=== PATIENT | male | born 1990 | race American Indian/Alaskan Native ===

== ENCOUNTER 2018-10-06 12:28 | Emergency (ER) | payer MEDICAID, OTHER ==
[2018-10-06 13:04] VITALS: BMI 38.4
[2018-10-06 13:06] VITALS: BP 159/91; PULSE 91; RESP 16; TEMP 99.3; O2SAT 95
[2018-10-06] MEDS ORDERED: DiphenhydrAMINE 12.5 mg/5 ml LIQ UD (5 ml) PO STA (13:36)
--- NOTE | 2018-10-06 13:36 | ED PDOC ---
Arrival/HPI - General Chief Complaint: ENT Problem Historian: Patient - History of Present Illness Narrative History of Present Illness (Text): 10/06/18 13:23 28 y/o male, no significant pmh, nkda, c/o nasal/sinus congestion with bilateral ear pain x 3 days. Pt. stated that he has runny nose with nasal/sinus congestion, associated with frontal headache, no fall or trauma, no night sweat, no rash, no numbness or tingling, no night sweat, no change in vision, no neck stiffness, no other medical or psychological complaints. Past Medical History - Provider Review Nursing Documentation Reviewed: Yes - Past History Past History: No Previous - Infectious Disease Hx of Infectious Diseases: None - Tetanus Immunization Tetanus Immunization: Up to Date - Past Medical History Past Medical History: No Previous - Cardiac Hx Coronary Artery Disease: No Hx Cardiac Arrhythmia: No Hx Congestive Heart Failure: No Hx Hypertension: No Hx Internal Defibrillator: No Hx Mitral Valve Prolapse: No Hx Pacemaker: No Hx Peripheral Edema: No - Pulmonary Hx Asthma: No Hx Bronchitis: No Hx Chronic Obstructive Pulmonary Disease (COPD): No Hx Emphysema: No - Neurological Hx Transient Ischemic Attacks (TIA): No - Renal Hx Renal Failure: No - Endocrine/Metabolic Hx Hyperthyroidism: No Hx Hypothyroidism: No - Hematological/Oncological Hx Anemia: No Hx Cancer: No Hx Hepatitis A: No Hx Hepatitis B: No Hx Hepatitis C: No Hx HIV: No - Musculoskeletal/Rheumatological Hx Arthritis: No - Gastrointestinal Hx Crohn's Disease: No Hx Diverticulitis: No Hx Gastrointestinal Ulcer: No Hx Liver Failure: No - Psychiatric Hx Substance Use: No - Past Surgical History Past Surgical History: No Previous - Surgical History Hx Valve Replacement: No Other/Comment: Nose-Deviated Septum - Suicidal Assessment Feels Threatened In Home Enviroment: No Family/Social History - Physician Review Nursing Documentation Reviewed: Yes Family/Social History: Unknown Family HX Smoking Status: Never Smoked Hx Alcohol Use: Yes Frequency of alcohol use: Socially Hx Substance Use: No Hx Substance Use Treatment: No Allergies/Home Meds Allergies/Adverse Reactions: Allergies shellfish derived Allergy (Verified 10/06/18 13:06) SWELLING Review of Systems - Review of Systems Constitutional: absent: Fatigue, Fevers Eyes: absent: Vision Changes ENT: Rhinorrhea, Sinus Congestion, Other (+ear pain). absent: Hearing Changes Respiratory: absent: SOB, Cough Cardiovascular: absent: Chest Pain Gastrointestinal: absent: Abdominal Pain, Diarrhea, Nausea, Vomiting Musculoskeletal: absent: Arthralgias, Back Pain Skin: absent: Rash, Pruritis Neurological: Headache. absent: Dizziness Psychiatric: absent: Anxiety, Depression, Suicidal Ideation Physical Exam Vital Signs Reviewed: Yes Vital Signs Temp Pulse Resp BP Pulse Ox 10/06/18 13:04 99.3 F 91 H 16 159/91 H 95 Temperature: Afebrile Blood Pressure: Hypertensive Pulse: Regular Respiratory Rate: Normal Appearance: Positive for: Well-Appearing, Non-Toxic, Comfortable Pain Distress: Mild Mental Status: Positive for: Alert and Oriented X 3 - Systems Exam Head: Present: Atraumatic, Normocephalic, Other (+ttp on the rt. maxillary region with +bending forward test, no swelling. ). No: Tenderness, Contusion, Swelling, Ecchymosis, Abrasion, Laceration Pupils: Present: PERRL Extroacular Muscles: Present: EOMI Conjunctiva: Present: Normal, Other (no periorbital swelling) Ears: Present: NORMAL TM, Normal Canal. No: Erythema Mouth: Present: Moist Mucous Membranes Pharnyx: Present: Normal. No: ERYTHEMA, EXUDATE, TONSILS ENLARGED Nose (External): Present: Atraumatic. No: Abrasion, Contusion, Laceration Nose (Internal): Present: Normal Inspection, No Active Bleeding, Rhinorrhea. No: Septal Deviation, Septal Hematoma, Epistaxis Neck: Present: Normal Range of Motion, Trachea Midline. No: Meningeal Signs, MIDLINE TENDERNESS, Paraspinal Tenderness, Lymphadenopathy Respiratory/Chest: Present: Clear to Auscultation, Good Air Exchange. No: Respiratory Distress, Accessory Muscle Use, Wheezes, Decreased Breath Sounds, Retracting, Rhonchi Cardiovascular: Present: Regular Rate and Rhythm, Normal S1, S2. No: Murmurs Abdomen: No: Tenderness, Distention, Peritoneal Signs Back: Present: Normal Inspection Upper Extremity: Present: Normal Inspection. No: Cyanosis, Edema Lower Extremity: Present: Normal Inspection. No: Edema Neurological: Present: GCS=15, CN II-XII Intact, Speech Normal, Motor Func Gross ly Intact, Gait Normal, Memory Normal, Other (no drift, no focal neurological deficits. ) Skin: Present: Warm, Dry, Normal Color. No: Rashes Psychiatric: Present: Alert, Oriented x 3, Normal Insight, Normal Concentration Medical Decision Making ED Course and Treatment: 10/06/18 13:39 -Toradol IM and benadryl 10/06/18 14:14 -Pt. request to be discharged home. No more headache now. -Discharge home with augmentin, claritin d24, flonase, motrin, stay hydrated, follow up with your own and ENT within 2 days, return to the ER for any new or worsening signs or symptoms. - PA / [employer] / Resident Statement / has reviewed & agrees with the documentation as recorded. Disposition/Present on Arrival - Present on Arrival Any Indicators Present on Arrival: No History of DVT/PE: No History of Uncontrolled Diabetes: No Urinary Catheter: No History of Decub. Ulcer: No History Surgical Site Infection Following: None - Disposition Have Diagnosis and Disposition been Completed?: Yes Diagnosis: Sinusitis Disposition: HOME/ ROUTINE Disposition Time: 14:05 Patient Plan: Discharge Patient Problems: Current Active Problems Problem Status Onset Sinusitis Acute Condition: GOOD Additional Instructions: -Discharge home with augmentin, claritin d24, flonase, motrin, stay hydrated, follow up with your own and ENT within 2 days, return to the ER for any new or worsening signs or symptoms. Prescriptions: Amoxicillin/Clavulanate [Augmentin 875 MG-125 MG] 1 tab PO BID #14 tab Fluticasone Nasal [Flonase] 1 spr NS DAILY PRN #1 spr PRN Reason: Other Ibuprofen [Motrin Tab] 600 mg PO QID PRN #30 tab PRN Reason: Other Loratadine/Pseudoephedrine [Claritin-D 24 Hour Tablet] 1 each PO DAILY #7 tab.er.24h Referrals: Franky Walker DO [Staff Provider] - Follow up with primary [facility] at [facility] [place] [Outside] - Follow up with primary Forms: [employer] Connect (Slovak), WORK NOTE
== END 2018-10-06 14:29 | disposition home or self-care (01) ==
LOC: ED 12:28
DX: J32.9 Chronic sinusitis, unspecified (principal)
CPT/HCPCS: 96372; 99283; J1885

== ENCOUNTER 2018-10-06 21:01 | Emergency (ER) | payer SELFPAY ==
[2018-10-06 22:20] VITALS: BP 129/80; PULSE 101; RESP 19; TEMP 98.7; O2SAT 97; BMI 38.7
--- NOTE | 2018-10-06 22:47 | ED PDOC ---
Arrival/HPI - General Historian: Patient - History of Present Illness Narrative History of Present Illness (Text): 10/06/18 22:40 28 y o male no remarkable past medical history, presents to the Emergency department complaining of R ear pain that started this am. Pt was recently seen in [facility] Emergency department earlier today, diagnosed with sinusitis, and prescribed antibiotics, Claritin, and ibuprofen for pain. Pt states he picked up his meds at the pharmacy today, took 1 dose of each medication, felt like his symptoms were not improving, and thus came to the Emergency department again. Reports ear pain, associated jaw pain, and sore throat. States his tongue is s wollen but denies feeling like his throat is closing up. States he has pain with swallowing foods and liquids. Admits to productive yellowish sputum. Admits to subjective fevers and chills. Denies headache, chest pain, sob, nausea, vomiting, d/c, abd pain, urinary complaints, or other symptoms. 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 Past medical history: states he has had recurrent ear infections in childhood, but no recent hx PSurgHx: denies Allergies: NKDA Meds: Augmentin, Claritin, ibuprofen Fam hx: denies, noncontributory Soc hx: denies smoking, EtOH, or illicit drug use <Randall Soto - Last Filed: 10/06/18 23:11> - History of Present Illness Symptom Onset: Gradual Symptom Course: Unchanged Activities at Onset: Light <Jeffrey Vanessa - Last Filed: 10/06/18 23:14> - General Chief Complaint: ENT Problem Past Medical History - Past History Past History: No Previous - Infectious Disease Hx of Infectious Diseases: None - Tetanus Immunization Tetanus Immunization: Up to Date - Past Medical History Past Medical History: No Previous - Cardiac Hx Cardiac Arrhythmia: No Hx Congestive Heart Failure: No Hx Hypertension: No Hx Internal Defibrillator: No Hx Mitral Valve Prolapse: No Hx Pacemaker: No Hx Peripheral Edema: No - Pulmonary Hx Asthma: No Hx Bronchitis: No Hx Chronic Obstructive Pulmonary Disease (COPD): No Hx Emphysema: No - Neurological Hx Transient Ischemic Attacks (TIA): No - Renal Hx Renal Failure: No - Endocrine/Metabolic Hx Hyperthyroidism: No Hx Hypothyroidism: No - Hematological/Oncological Hx Anemia: No Hx Cancer: No Hx Hepatitis A: No Hx Hepatitis B: No Hx Hepatitis C: No - Musculoskeletal/Rheumatological Hx Arthritis: No - Gastrointestinal Hx Crohn's Disease: No Hx Diverticulitis: No Hx Gastrointestinal Ulcer: No Hx Liver Failure: No - Psychiatric Hx Depression: No Hx Emotional Abuse: No Hx Physical Abuse: No Hx Substance Use: No - Past Surgical History Past Surgical History: No Previous - Surgical History Hx Valve Replacement: No Other/Comment: Nose-Deviated Septum - Anesthesia Hx Anesthesia: Yes Hx Anesthesia Reactions: No Hx Malignant Hyperthermia: No - Suicidal Assessment Feels Threatened In Home Enviroment: No <Randall Soto - Last Filed: 10/06/18 23:11> - Provider Review Nursing Documentation Reviewed: Yes <Jeffrey Vanessa - Last Filed: 10/06/18 23:14> Family/Social History Family/Social History: No Known Family HX Smoking Status: Never Smoked Hx Alcohol Use: Yes Frequency of alcohol use: Socially Hx Substance Use: No Hx Substance Use Treatment: No <Randall Soto - Last Filed: 10/06/18 23:11> - Physician Review Nursing Documentation Reviewed: Yes <Jeffrey Vanessa - Last Filed: 10/06/18 23:14> Allergies/Home Meds <Randall Soto - Last Filed: 10/06/18 23:11> <Jeffrey Vanessa - Last Filed: 10/06/18 23:14> Allergies/Adverse Reactions: Allergies shellfish derived Allergy (Verified 10/06/18 13:06) SWELLING Review of Systems - Review of Systems Constitutional: Fevers. absent: Fatigue, Night Sweats Eyes: absent: Vision Changes ENT: Hearing Changes, Sore Throat, Sinus Congestion Respiratory: Sputum. absent: SOB, Cough Cardiovascular: absent: Chest Pain, MALLORY, Orthopnea Gastrointestinal: absent: Abdominal Pain, Stool Changes, Constipation, Diarrhea, Nausea, Vomiting Skin: absent: Rash Neurological: absent: Headache, Dizziness <Randall Soto - Last Filed: 10/06/18 23:11> - Physician Review All systems were reviewed & negative as marked: Yes <Jeffrey Vanessa - Last Filed: 10/06/18 23:14> Physical Exam Vital Signs Temp Pulse Resp BP Pulse Ox 10/06/18 22:12 98.7 F 101 H 19 129/80 97 Temperature: Afebrile Blood Pressure: Normal Pulse: Tachycardic Respiratory Rate: Normal Appearance: Positive for: Non-Toxic, Uncomfortable Pain Distress: Moderate Mental Status: Positive for: Alert and Oriented X 3 - Systems Exam Head: Present: Atraumatic, Normocephalic Pupils: Present: PERRL Extroacular Muscles: Present: EOMI Conjunctiva: Present: Normal Ears: Present: Erythema, Fluid Mouth: Present: Moist Mucous Membranes, Normal Tounge Pharnyx: No: ERYTHEMA, EXUDATE, TONSILS ENLARGED, Peritonsilar Swelling, Strider Nose (Internal): Present: Rhinorrhea Neck: Present: Normal Range of Motion, Lymphadenopathy. No: JVD Respiratory/Chest: Present: Clear to Auscultation, Good Air Exchange. No: Respiratory Distress, Wheezes, Rales, Rhonchi Cardiovascular: Present: Regular Rate and Rhythm, Normal S1, S2. No: Murmurs, Rub, Gallop Abdomen: Present: Normal Bowel Sounds. No: Tenderness, Distention, Rebound, Mass/Organomegaly Upper Extremity: Present: Normal Inspection, Normal ROM, NORMAL PULSES, Neurovascularly Intact, Capillary Refill < 2s. No: Cyanosis, Edema Lower Extremity: Present: Normal Inspection, NORMAL PULSES, Normal ROM. No: Edema, Cyanosis Neurological: Present: GCS=15, CN II-XII Intact, Speech Normal Skin: Present: Warm, Dry, Normal Color. No: Rashes Psychiatric: Present: Alert, Oriented x 3, Normal Insight, Normal Concentration <Randall Soto - Last Filed: 10/06/18 23:11> Vital Signs Reviewed: Yes Vital Signs Temp Pulse Resp BP Pulse Ox 10/06/18 22:12 98.7 F 101 H 19 129/80 97 <Jeffrey Vanessa - Last Filed: 10/06/18 23:14> Medical Decision Making ED Course and Treatment: 10/06/18 22:52 A: Pt presents with pharyngitis and R ear infection. P: Decadron 10 mg IM x1. Instructed pt to continue with antibiotics, Claritin, and ibuprofen prescribed earlier today. Educated pt that symptoms will take up to 48-72 hrs to improve. Pt can use OTC Chloraseptic spray prior to drinking and eating to help with throat pain. Instructed to drink plenty of fluids and drink broths/soups, can advance diet as tolerated. Instructed to follow with PCP in next 2-3 days after Emergency department discharge. Pt to be discharged to home. <Randall Soto - Last Filed: 10/06/18 23:11> ED Course and Treatment: Patient Seen with Provider In agreement with resident note which contains more details about the patient. Patient seen and evaluated with resident. Came up with plan and treatment together. 28 year old male presents complaining of right ear pain that started this morning. Patient was seen earlier today and diagnosed with diagnosed with sinusitis, and prescribed antibiotics, Claritin, and ibuprofen for pain. Plan: -- Decadron Inj -- Reassess and disposition - Medication Orders Current Medication Orders: Discontinued Medications Dexamethasone (Decadron Inj) 10 mg IM STAT STA Stop: 10/06/18 22:41 Last Admin: 10/06/18 22:58 Dose: 10 mg IM Administration Charges Document 10/06/18 22:58 JMR (Rec: 10/06/18 22:58 JMR [id number]) Injection Site MAR Injection Site Left Deltoid Charges for Administration # of IM Administrations 1 <Jeffrey Vanessa - Last Filed: 10/06/18 23:14> - PA / HOME HEALTH ATTENDANT / Resident Statement / has reviewed & agrees with the documentation as recorded. MD/ has examined the patient and agrees with the treatment plan. - Scribe Statement The provider has reviewed the documentation as recorded by the Scribe Jesusita Mercado Provider Scribe Attestation: All medical record entries made by the Scribe were at my direction and personally dictated by me. I have reviewed the chart and agree that the record accurately reflects my personal performance of the history, physical exam, me dical decision making, and the department course for this patient. I have also personally directed, reviewed, and agree with the discharge instructions and disposition. <Jeffrey Vanessa - Last Filed: 10/06/18 23:14> Disposition/Present on Arrival - Present on Arrival Any Indicators Present on Arrival: No History of DVT/PE: No History of Uncontrolled Diabetes: No Urinary Catheter: No History of Decub. Ulcer: No History Surgical Site Infection Following: None - Disposition Have Diagnosis and Disposition been Completed?: Yes Disposition Time: 23:12 <Randall Soto - Last Filed: 10/06/18 23:11> <Jeffrey Vanessa - Last Filed: 10/06/18 23:14> - Disposition Diagnosis: Pharyngitis, Ear infection Disposition: HOME/ ROUTINE Patient Problems: Current Active Problems Problem Status Onset Ear infection Acute Pharyngitis Acute Condition: STABLE Discharge Instructions (ExitCare): Ear Infections (Otitis Media), Sore Throat, Adult (DC) Print Language: ICELANDIC Additional Instructions: Please follow up with your primary care physician within 2-3 days of hospital discharge. Please take medications as prescribed. Should symptoms recur or worsen, please call your primary care physician or report to your nearest emergency department. Forms: [employer] (Maltese)
== END 2018-10-07 00:46 | disposition home or self-care (01) ==
LOC: ED 21:01
DX: J02.9 Acute pharyngitis, unspecified (principal); H66.91 Otitis media, unspecified, right ear
CPT/HCPCS: 96372; 99282; J1100

== ENCOUNTER 2019-01-02 09:02 | Emergency (ER) | payer BC ==
[2019-01-02 09:02] VITALS: BMI 38.4
--- NOTE | 2019-01-02 09:11 | ED PDOC ---
Arrival/HPI - General Chief Complaint: Chest Pain Time Seen by Provider: 01/02/19 09:03 Historian: Patient - History of Present Illness Narrative History of Present Illness (Text): 01/02/19 09:37 28 y/o male with no significant PMH presents to the ED c/o epigastric pain x 2 weeks. Pain is described as a pressure, sometimes burning, that occasionally radiates up into the chest. Made worse after eating, lying flat, and working out but occasionally occurs unprovoked. Pain is constant but waxes and wanes. Has taken peptobismol once for the pain without relief. Had one episode of cough today with rao hemoptysis, states the bottom of the sink had blood; and one episode of post-tussive vomiting. Does not have a PMD or project [employer] and has never had pain like this prior. Denies fevers, chills, SOB, congestion, back pain, headache, dizziness, nausea, diarrhea, constipation, melena, rectal bleeding, urinary symptoms, drug use, or any other associated symptoms. Past Medical History - Provider Review Nursing Documentation Reviewed: Yes - Past History Past History: No Previous - Infectious Disease Hx of Infectious Diseases: None - Tetanus Immunization Tetanus Immunization: Up to Date - Past Medical History Past Medical History: No Previous - Cardiac Hx Cardiac Arrhythmia: No Hx Congestive Heart Failure: No Hx Hypertension: No Hx Internal Defibrillator: No Hx Mitral Valve Prolapse: No Hx Pacemaker: No Hx Peripheral Edema: No - Pulmonary Hx Asthma: No Hx Bronchitis: No Hx Chronic Obstructive Pulmonary Disease (COPD): No Hx Emphysema: No - Neurological Hx Transient Ischemic Attacks (TIA): No - Renal Hx Renal Failure: No - Endocrine/Metabolic Hx Hyperthyroidism: No Hx Hypothyroidism: No - Hematological/Oncological Hx Anemia: No Hx Cancer: No Hx Hepatitis A: No Hx Hepatitis B: No Hx Hepatitis C: No - Musculoskeletal/Rheumatological Hx Arthritis: No - Gastrointestinal Hx Crohn's Disease: No Hx Diverticulitis: No Hx Gastrointestinal Ulcer: No Hx Liver Failure: No - Psychiatric Hx Depression: No Hx Emotional Abuse: No Hx Physical Abuse: No Hx Substance Use: No - Past Surgical History Past Surgical History: No Previous - Surgical History Hx Valve Replacement: No Other/Comment: Nose-Deviated Septum - Anesthesia Hx Anesthesia: Yes Hx Anesthesia Reactions: No Hx Malignant Hyperthermia: No - Suicidal Assessment Feels Threatened In Home Enviroment: No Family/Social History - Physician Review Nursing Documentation Reviewed: Yes Family/Social History: No Known Family HX Smoking Status: Never Smoked Hx Alcohol Use: Yes Hx Substance Use: No Hx Substance Use Treatment: No Allergies/Home Meds Allergies/Adverse Reactions: Allergies shellfish derived Allergy (Verified 01/02/19 09:07) SWELLING Review of Systems - Physician Review All systems were reviewed & negative as marked: Yes - Review of Systems Constitutional: Normal. absent: Fevers Eyes: Normal. absent: Vision Changes ENT: Normal. absent: Sore Throat, Sinus Congestion Respiratory: Cough. absent: SOB, Sputum Cardiovascular: Chest Pain. absent: Palpitations, Syncope Gastrointestinal: Abdominal Pain. absent: Stool Changes, Nausea, Vomiting, Appetite Changes Genitourinary Male: Normal. absent: Dysuria, Frequency Musculoskeletal: Normal. absent: Arthralgias, Back Pain, Neck Pain Skin: Normal. absent: Rash Neurological: Normal. absent: Headache, Dizziness, Focal Weakness, Disequilibrium Endocrine: Normal Hemo/Lymphatic: Normal Psychiatric: Normal Physical Exam Vital Signs Reviewed: Yes Temperature: Afebrile Blood Pressure: Hypertensive Pulse: Regular Respiratory Rate: Normal Appearance: Positive for: Well-Appearing, Non-Toxic, Comfortable Pain Distress: None Mental Status: Positive for: Alert and Oriented X 3 - Systems Exam Head: Present: Atraumatic, Normocephalic Pupils: Present: PERRL Extroacular Muscles: Present: EOMI Conjunctiva: Present: Normal Mouth: Present: Moist Mucous Membranes Neck: Present: Normal Range of Motion. No: Paraspinal Tenderness Respiratory/Chest: Present: Clear to Auscultation, Good Air Exchange. No: Respiratory Distress, Accessory Muscle Use Cardiovascular: Present: Regular Rate and Rhythm, Normal S1, S2, Peripheal Pulses Present. No: Murmurs Abdomen: Present: Tenderness (epigastric, mild), Normal Bowel Sounds. No: Distention, Peritoneal Signs Rectal: Present: Normal Rectal Tone. No: Occult Blood, Rectal Tenderness, Gross Blood, Melena, Hemorrhoids, Fissures, Nodule/Mass/Lesions Back: Present: Normal Inspection. No: CVA Tenderness Upper Extremity: Present: Normal Inspection, Normal ROM, NORMAL PULSES, Neurovascularly Intact, Capillary Refill < 2s. No: Cyanosis, Edema, Temperature Abnormalties Lower Extremity: Present: Normal Inspection, NORMAL PULSES, Normal ROM, Neurovascularly Intact, Capillary Refill < 2 s. No: Edema, Temperature Abnormalties Neurological: Present: GCS=15, CN II-XII Intact, Speech Normal, Motor Func Grossly Intact, Normal Sensory Function, Gait Normal Skin: Present: Warm, Dry, Normal Color. No: Rashes Psychiatric: Present: Alert, Oriented x 3, Normal Insight, Normal Concentration, Normal Affect, Normal Mood Medical Decision Making ED Course and Treatment: 01/02/19 09:09 Initial Plan: * Bloodwork * Cardiac Iso * Coags * CXR * EKG * IVF * GI cocktail Pain appears MSK or GI related, low suspicion for cardiac chest pain secondary to low heart score, exacerbating factors, long duration, and epigastric tenderness. However, secondary to hemoptysis, ED attending Dr. Wells recommends CTA to r/o PE without D-dimer. Pt reports mild improvement in pain with medications Labwork reviewed, CPK elevated. Pt has history of elevated CPK with similar pain, hydrated with IVF. Pt has no evidence of rhabdomyolysis, no blood in urine. 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 Diagnostic testing results and plan of care discussed with patient. Strict instructions given regarding prescription use, importance of followup, and signs/symptoms to return to ER including worsening chest pain, difficulty breathing, syncope, or any other new/worsening symptoms. Pt verbalized understanding of discussion. Patient is A&Ox3, ambulating with steady gait, with vital signs stable for discharge. - Lab Interpretations Lab Results: 01/02/19 09:50 01/02/19 09:50 Lab Results 01/02/19 09:50: Urine Opiates Screen Negative, Urine Methadone Screen Negative, Ur Barbiturates Screen Negative, Ur Phencyclidine Scrn Negative, Ur Amphetamines Screen Negative, U Benzodiazepines Scrn Negative, U Oth Cocaine Metabols Negative, U Cannabinoids Screen Negative 01/02/19 09:50: Sodium 141, Potassium 4.1, Chloride 104, Carbon Dioxide 29, Anion Gap 12, BUN 16, Creatinine 1.0, Est GFR ( Amer) > 60, Est GFR (Non- Af Amer) > 60, Random Glucose 116 H, Calcium 9.6, Magnesium 1.8, Total Bilirubin 0.4, AST 50, ALT 38, Alkaline Phosphatase 88, Lactate Dehydrogenase 609, Total Creatine Kinase 1308 H, CK-MB (CK-2) Pending, CK-MB (CK-2) % Pending, Troponin I < 0.01, Total Protein 8.3, Albumin 4.8, Globulin 3.5, Albumin/Globulin Ratio 1.4 01/02/19 09:50: Urine Color Yellow, Urine Appearance Clear, Urine pH 6.0, Ur Specific Greer >= 1.030, Urine Protein Negative, Urine Glucose (UA) Negative, Urine Ketones Negative, Urine Blood Negative, Urine Nitrate Negative, Urine Bilirubin Negative, Urine Urobilinogen 0.2, Ur Leukocyte Esterase Negative 01/02/19 09:50: PT 12.6 H, INR 1.12, APTT 33.4 01/02/19 09:50: WBC 8.4, RBC 6.34 H, Hgb 14.3, Hct 43.8, MCV 69.1 L, MCH 22.6 L, MCHC 32.6, RDW 15.1 H, Plt Count 223, Neut % (Auto) 63.3, Lymph % (Auto) 28.7, Ross % (Auto) 5.4, Eos % (Auto) 2.4, Baso % (Auto) 0.2, Lymph # (Auto) 2.4, Ross # (Auto) 0.5, Eos # (Auto) 0.2, Baso # (Auto) 0.02, Absolute Neuts (auto) 5.30 I have reviewed the lab results: Yes Interpretation: No sign. chg./baseline - RAD Interpretation Narrative RAD Interpretations (Text): 01/02/19 09:43 CXR FINDINGS: LUNGS: The lungs are well inflated and clear. PLEURA: No pleural effusions or pneumothorax. CARDIOVASCULAR: The heart is normal in size. No aortic atherosclerotic calcifications present. OSSEOUS STRUCTURES: Within normal limits for the patient's age. VISUALIZED UPPER ABDOMEN: Normal. OTHER FINDINGS: None. IMPRESSION: No active pulmonary disease. CTA FINDINGS: PULMONARY ARTERIES: There are no filling defects in the pulmonary arteries to suggest acute pulmonary embolism. AORTA: No acute findings. No thoracic aortic aneurysm. No aortic atherosclerotic calcification or mural plaque present. LUNGS: The lungs are well inflated and clear. No nodule, mass or pulmonary consolidation. PLEURAL SPACES: No effusion or pneumothorax. HEART: Moderate cardiomegaly. No significant pericardial effusion. LYMPH NODES: No pathologic mediastinal or hilar lymphadenopathy. BONES, CHEST WALL: Within normal limits for the patient's age. No fracture or destructive lesion OTHER FINDINGS: None. IMPRESSION: No CTA evidence for acute pulmonary embolism. Clear lungs. Moderate cardiomegaly. 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 Wells) Type: 12 lead EKG Comparison: Com.w/previous EKG (2012) Disposition/Present on Arrival - Present on Arrival Any Indicators Present on Arrival: No History of DVT/PE: No History of Uncontrolled Diabetes: No Urinary Catheter: No History Surgical Site Infection Following: None - Disposition Have Diagnosis and Disposition been Completed?: No Diagnosis: Elevated CPK, Acid reflux Disposition: HOME/ ROUTINE Disposition Time: 12:00 Patient Plan: Discharge Condition: IMPROVED Discharge Instructions (ExitCare): Gastritis (DC), Chest Pain, Chest Pain That Is Not Caused by the Heart (DC) Additional Instructions: Increase fluids Pepcid every 12 hours as needed Omeprazole daily Followup with GI doctor within 2 days 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
[2019-01-02 09:14] VITALS: TEMP 97.5
[2019-01-02] MEDS ORDERED: Atrop/Hyosc/Scopal/PB Elixir (120 ml) PO STA (09:22)
[2019-01-02] MEDS ORDERED: Sodium Chloride 0.9% 1,000 ML IV STA (09:22)
[2019-01-02] MEDS ORDERED: Alum-Mag Hydrox-Simethicone Susp (30 mL) PO STA (09:22)
--- NOTE | 2019-01-02 09:38 | RAD ---
Date of service: 01/02/2019 HISTORY: chest pain COMPARISON: 05/20/2013. FINDINGS: LUNGS: The lungs are well inflated and clear. PLEURA: No pleural effusions or pneumothorax. CARDIOVASCULAR: The heart is normal in size. No aortic atherosclerotic calcifications present. OSSEOUS STRUCTURES: Within normal limits for the patient's age. VISUALIZED UPPER ABDOMEN: Normal. OTHER FINDINGS: None. IMPRESSION: No active pulmonary disease.
[2019-01-02 09:53] LABS: BASO # 0.02 K/mm3 (0.0-2.0); BASO % 0.2 % (0.0-3.0); EOS # 0.2 (0.0-0.7); EOS % 2.4 % (1.5-5.0); HEMOGLOBIN 14.3 g/dL (14.0-18.0); LYMPH # 2.4 (1.2-3.4); LYMPH % 28.7 % (22.0-35.0); MEAN CELL VOLUME 69.1 fl (80.0-105.0); MEAN CORPUSCULAR HEMOGLOBIN 22.6 pg (25.0-35.0); MEAN CORPUSCULAR HGB CONC 32.6 g/dl (31.0-37.0); MONO # 0.5 (0.1-0.6); MONO % 5.4 % (1.0-6.0); PLATELET COUNT 223 10^3/uL (120.0-450.0); RBC 6.34 10^6/uL (3.5-6.1); RED CELL DISTRIBUTION WIDTH 15.1 % (11.5-14.5); URINE BILIRUBIN NEGATIVE (NEGATIVE); URINE BLOOD NEGATIVE (NEGATIVE); URINE GLUCOSE (UA) NEGATIVE (NEGATIVE); URINE LEUKOCYTE ESTERASE NEGATIVE Leu/uL (NEGATIVE); URINE PROTEIN NEGATIVE mg/dL (<30 mg/dL); URINE UROBILINOGEN 0.2 E.U./dL (<1 E.U./dL); WHITE BLOOD COUNT 8.4 10^3/uL (4.5-11.0)
[2019-01-02 09:55] LABS: URINE APPEARANCE CLEAR (CLEAR); URINE COLOR YELLOW (YELLOW)
[2019-01-02 09:59] LABS: INR 1.12; PARTIAL THROMBOPLASTIN TIME 33.4 Seconds (26.9-38.3); PROTHROMBIN TIME 12.6 SECONDS (9.4-12.5)
[2019-01-02 10:02] LABS: ALB/GLOB RATIO 1.4 (1.1-1.8); ALBUMIN 4.8 g/dL (3.0-4.8); ALT/SGPT 38 U/L (7-56); AST/SGOT 50 U/L (17-59); BLOOD UREA NITROGEN 16 mg/dL (7-21); CALCIUM 9.6 mg/dL (8.4-10.5); GFR NON-AFRICAN AMERICAN > 60
[2019-01-02] MEDS ORDERED: DiphenhydrAMINE 50 mg/ml Inj IVP STA (10:08)
[2019-01-02 10:13] LABS: BARBITURATES, UR NEGATIVE (NEGATIVE); BENZODIAZEPINES, UR NEGATIVE (NEGATIVE); OPIATES, UR NEGATIVE (NEGATIVE); PHENCYCLIDINE, UR NEGATIVE (NEGATIVE); TROPONIN I < 0.01 ng/mL
[2019-01-02 10:25] LABS: CK MB% 0.7 % (2.5-3.0); CK-MB 8.9 ng/mL (0.0-3.6)
[2019-01-02] MEDS ORDERED: Iohexol 350 MG/100 ML VIAL ONE (10:30)
--- NOTE | 2019-01-02 11:27 | CT ---
Date of service: 01/02/2019 PROCEDURE: CT Chest with contrast (Pulmonary Angiogram) HISTORY: hemoptysis, chest pain COMPARISON: Plain radiograph performed earlier the same day. TECHNIQUE: Axial computed tomography images were obtained of the chest in the pulmonary arterial phase of enhancement. Coronal and sagittal reformatted images were created and reviewed. Intravenous contrast dose: Radiation dose: Total exam DLP = 956.55 mGy-cm. This CT exam was performed using one or more of the following dose reduction techniques: Automated exposure control, adjustment of the mA and/or kV according to patient size, and/or use of iterative reconstruction technique. FINDINGS: PULMONARY ARTERIES: There are no filling defects in the pulmonary arteries to suggest acute pulmonary embolism. AORTA: No acute findings. No thoracic aortic aneurysm. No aortic atherosclerotic calcification or mural plaque present. LUNGS: The lungs are well inflated and clear. No nodule, mass or pulmonary consolidation. PLEURAL SPACES: No effusion or pneumothorax. HEART: Moderate cardiomegaly. No significant pericardial effusion. LYMPH NODES: No pathologic mediastinal or hilar lymphadenopathy. BONES, CHEST WALL: Within normal limits for the patient's age. No fracture or destructive lesion OTHER FINDINGS: None. IMPRESSION: No CTA evidence for acute pulmonary embolism. Clear lungs. Moderate cardiomegaly.
[2019-01-02 12:26] VITALS: BP 124/75; PULSE 82; RESP 17; O2SAT 100
--- NOTE | 2019-01-02 18:20 | CARD ---
APPROVED REPORT Date of service: 01/02/2019 EKG Measurement Heart [id number] MA [id number] <Conclusion> Normal sinus rhythm RSR' or QR pattern in V1 suggests right ventricular conduction delay Nonspecific ST and T wave abnormality Abnormal ECG
== END 2019-01-02 12:25 | disposition home or self-care (01) ==
LOC: ED 09:02
DX: R74.8 Abnormal levels of other serum enzymes (principal); K21.9 Gastro-esophageal reflux disease without esophagitis
CPT/HCPCS: 71045; 71275; 80053; 81003; 82550; 82553; 83615; 83735; 84484; 85025; 85044; 85610; 85730; 93005; 96361; 96374; 99283; G0480; J1200; J7030; Q9967